=== PATIENT | female | born 1945 | race Caucasian/White ===

== ENCOUNTER 2017-03-08 08:29 | Emergency (ER) | payer OTHER ==
[~2017-03-08] VITALS: Ht 165.1 cm; Wt 76.0 kg
[~2017-03-08 08:29] MED LIST: AMLO5TAB22 PO; AMOX500T PO; LEVO112T2 PO; NASA0.0521; OMEP20TA39 PO; ZOLP5TAB3 PO
[2017-03-08 08:31] VITALS: BP 150/98; PULSE 106; RESP 24; TEMP 97.9; O2SAT 98
[2017-03-08] MEDS ORDERED: HUMI40KI SQ (08:50)
[2017-03-08] MEDS ORDERED: SYNT112T PO (08:50)
[2017-03-08] MEDS ORDERED: ACETAMINOPHEN 325 MG TAB PO ONE (09:15)
--- NOTE | 2017-03-08 10:12 | RADRPT ---
EXAM DATE/TIME: 03/08/2017 09:31 [facility] COMPARISON: No previous studies available for comparison. INDICATIONS : Fall, right periorbital pain and swelling. RADIATION DOSE: 31.92 CTDIvol (mGy) MEDICAL HISTORY : Cardiovascular disease. Hypertension. SURGICAL HISTORY : None. ENCOUNTER: Initial ACUITY: 1 day PAIN SCALE: 5/10 LOCATION: Right facial TECHNIQUE: Multiple contiguous axial images were obtained of the head. Using automated exposure control and adj ustment of the mA and/or kV according to patient size, radiation dose was kept as low as reasonably a chievable to obtain optimal diagnostic quality images. FINDINGS: CEREBRUM: The ventricles are normal for age. No evidence of midline shift, mass lesion, hemorrhage or acute in farction. No extra-axial fluid collections are seen. POSTERIOR FOSSA: The cerebellum and brainstem are intact. The 4th ventricle is midline. The cerebellopontine angle i s unremarkable. EXTRACRANIAL: Prominent right-sided preorbital soft tissue swelling. SKULL: The calvaria is intact. No evidence of skull fracture. CONCLUSION: No acute intracranial findings. Maikel Thompson MD on March 08, 2017 at 10:09 Board Certified Radiologist. This report was verified electronically.
--- NOTE | 2017-03-08 10:16 | RADRPT ---
EXAM DATE/TIME: 03/08/2017 09:31 [facility] COMPARISON: No previous studies available for comparison. INDICATIONS : Fall, right periorbital pain and swelling. RADIATION DOSE: 54.39 CTDIvol (mGy) MEDICAL HISTORY : Cardiovascular disease. Hypertension. SURGICAL HISTORY : None. ENCOUNTER: Initial ACUITY: 1 day PAIN SCORE: 5/10 LOCATION: Right facial TECHNIQUE: Volumetric scanning of the facial bones was performed. Using automated exposure control and adjustme nt of the mA and/or kV according to patient size, radiation dose was kept as low as reasonably achiev able to obtain optimal diagnostic quality images. FINDINGS: Severe right preorbital and premaxillary soft tissue swelling. No evidence of fracture. Globes are ro und and symmetric. 1.3 cm polyp or retention cyst in the posterior right maxillary sinus. Small air-f luid level in the sphenoid sinus. CONCLUSION: 1. No fracture. 2. Prominent right-sided facial soft tissue swelling. Maikel Thompson MD on March 08, 2017 at 10:10 Board Certified Radiologist. This report was verified electronically.
--- NOTE | 2017-03-08 10:19 | RADRPT ---
EXAM DATE/TIME: 03/08/2017 09:31 [facility] COMPARISON: No previous studies available for comparison. INDICATIONS : Fall, facial pain, neck pain. RADIATION DOSE: 17.63 CTDIvol (mGy) MEDICAL HISTORY : Cardiovascular disease. Hypertension. SURGICAL HISTORY : None. ENCOUNTER: Initial ACUITY: 1 day PAIN SCALE: 3/10 LOCATION: neck TECHNIQUE: Volumetric scanning of the cervical spine was performed. Multiplanar reconstructions in the sagittal, coronal and oblique axial planes were performed. Using automated exposure control and adjustment o f the mA and/or kV according to patient size, radiation dose was kept as low as reasonably achievable to obtain optimal diagnostic quality images. FINDINGS: VERTEBRAE: Normal vertebral body height. ALIGNMENT: No evidence of subluxation. C2-C3: Severe left facet arthrosis. Moderate left neural foraminal narrowing. Central canal diameter within normal limits. C3-C4: Severe left facet arthrosis. Broad-based disc bulge. Central canal diameter within normal limits. Sev ere left neural foraminal narrowing. C4-C5: Broad-based disc osteophyte complex. Severe bilateral facet arthrosis. Severe right neural foraminal narrowing. Mild left neural foraminal narrowing. Mild central canal narrowing. C5-C6: Broad-based disc osteophyte complex. Moderate bilateral facet arthrosis. Mild to moderate central can al narrowing. Mild left neural foraminal narrowing. C6-C7: Broad-based disc bulge and mild bilateral facet arthrosis. Mild left neural foraminal narrowing. Mini mal central canal narrowing. C7-T1: The bony spinal canal is normal in size. No evidence of disc bulge or herniation. The neural forami na are bilaterally patent. CONCLUSION: No evidence of fracture. Multilevel degenerative findings. Maikel Thompson MD on March 08, 2017 at 10:14 Board Certified Radiologist. This report was verified electronically.
[2017-03-08 10:41] VITALS: BP 145/88; PULSE 89; RESP 17; TEMP 97.8; O2SAT 99
--- NOTE | 2017-03-08 10:59 | PD ---
HPI Chief Complaint: Fall Time Seen by Provider: 09:05 Travel History International Travel<30 days: No Contact w/Intl Traveler<30days: No History of Present Illness HPI Patient is a 71-year-old female comes in after a trip and fall today. She was walking, as she normally does about 4 times a week, when she tripped over some uneven pavement and fell on her face. She tried to a fall with her hands, but she still hit the right side of her head. She did not lose consciousness. She is having some confusion. She denies any dizziness, blurred vision, nausea or vomiting. She denies any pain to her extremities. She was able to get up after it happened and walk to get home. She has no other complaints and was in her normal state of health prior to the incident. [facility] Past Medical History Arthritis: Yes Cardiovascular Problems: Yes Diminished Hearing: No Hypertension: Yes Musculoskeletal: Yes Thyroid Disease: Yes Tetanus Vaccination: < 5 Years Influenza Vaccination: Yes ?: Not Menopausal: Yes Tubal Ligation: Yes Past Surgical History Hysterectomy: Yes Social History Alcohol Use: Yes (OCASSIONALLY) Tobacco Use: No Substance Use: No Allergies-Medications (Allergen,Severity, Reaction): Coded Allergies: No Known Allergies (Unverified , 03/08/17) Reported Meds & Prescriptions Reported Meds & Active Scripts Active Reported Synthroid (Levothyroxine Sodium) 112 Mcg Tab 112 Mcg PO DAILY Humira 2-Pack Inj (Adalimumab 2-Pack Inj) 40 Mg/0.8 Ml Syr 40 Mg SQ Q14D Review of Systems Except as stated in HPI: all other systems reviewed are Neg General / Constitutional: No: Fever, Chills Eyes: No: Blurred Vision HENT: Positive: Headaches Cardiovascular: No: Chest Pain or Discomfort Respiratory: No: Shortness of Breath Gastrointestinal: No: Nausea, Vomiting Musculoskeletal: No: Edema, Pain Skin: Positive Other (abrasions) Neurologic: No: Weakness, Dizziness Physical Exam Narrative GENERAL: Awake and alert, in no acute distress. SKIN: Focused skin assessment warm/dry. Large hematoma around the right I. Abrasion to the right palm. HEAD: Atraumatic. Normocephalic. EYES: Pupils equal and round. No scleral icterus. Extraocular movements intact. ENT: Mucous membranes pink and moist. NECK: Trachea midline. No JVD. No cervical spine tenderness. CARDIOVASCULAR: Regular rate and rhythm. No murmur appreciated. RESPIRATORY: No accessory muscle use. Clear to auscultation. Breath sounds equal bilaterally. GASTROINTESTINAL: Abdomen soft, non-tender, nondistended. MUSCULOSKELETAL: No obvious deformities. No clubbing. No cyanosis. No edema. No tenderness to the thoracic or lumbar spine. No pelvic tenderness. No tenderness to palpation of either upper or lower extremity. She has full range of motion of her extremities. NEUROLOGICAL: Awake and alert. No obvious cranial nerve deficits. Motor grossly within normal limits. Normal speech. PSYCHIATRIC: Appropriate mood and affect; insight and judgment normal. Data Data Last Documented VS Vital Signs Date Time Temp Pulse Resp B/P Pulse Ox O2 Delivery O2 Flow Rate FiO2 03/08/17 10:41 97.8 89 17 145/88 99 03/08/17 08:[address] Brain W/O Iv Contrast(Rout) (03/08/17 ) Ct Facial Bones W/O Iv Cont (03/08/17 ) Ct Cerv Spine W/O Contrast (03/08/17 ) Acetaminophen (Tylenol) (03/08/17 09:15) Elbow, Complete (4 Vws) (03/08/17 ) MDM Medical Decision Making Medical Screen Exam Complete: Yes Emergency Medical Condition: Yes Differential Diagnosis ICH versus orbital fracture versus occult fracture versus contusion Narrative Course Patient is a 71-year-old female comes in after she tripped and fell today. Exam shows a large hematoma to the right eye. She has no blurred vision, extraocular movements are intact. CT head, C-spine, facial bones performed. The CAT scan showed no acute abnormalities. Patient given Tylenol for pain. Advised to continue to apply ice to her head. She is asking to go home, she says she is hungry. Family is comfortable taking her home. Family advised of things to look out for and when to return to the emergency department. Advised follow-up with her primary doctor. Advised to return as needed for any worsening symptoms. Diagnosis Primary Impression: Head injury Qualified Code: S09.90XA - Head injury, initial encounter Patient Instructions: Contusion in Adults (ED), General Instructions, Head Injury (ED) Additional Instructions: Apply ice to the swelling around your eye. Take Tylenol or Ibuprofen as needed for pain. Follow up with a primary care physician. Return to the ED as needed for any worsening symptoms. Disposition: 01 DISCHARGE HOME Condition: Stable Riya Matson MD Mar 08, 2017 10:59
[2017-03-08 11:00] VITALS: BP 138/86; TEMP 97.8
== END 2017-03-08 11:00 | disposition home or self-care (01) ==
LOC: NEPC 08:29 → MERGE 08:29 → NEPC 11:00
DX: S09.90XA Unspecified injury of head, initial encounter (principal); S60.511A Abrasion of right hand, initial encounter; H57.8 Other specified disorders of eye and adnexa; W01.198A Fall on same level from slipping, tripping and stumbling with subsequent striking against other object, initial encounter; Y93.01 Activity, walking, marching and hiking; Y92.480 Sidewalk as the place of occurrence of the external cause
CPT/HCPCS: 70450; 70486; 72125